=== PATIENT | female | born 1965 | race Caucasian/White ===

== ENCOUNTER → 2018-04-23 | Emergency (ER) | payer OTHER ==
[~2018-04-23] VITALS: Ht 160 cm; Wt 54.4 kg
== END | disposition left against medical advice (07) ==
LOC: ER 11:04
DX: Z53.20 Procedure and treatment not carried out because of patient's decision for unspecified reasons (principal)

== ENCOUNTER 2019-11-05 12:07 | Emergency (ER) | payer OTHER ==
[~2019-11-05] VITALS: Ht 162.6 cm; Wt 53.1 kg
== END 2019-11-05 17:26 | disposition home or self-care (01) ==
LOC: ER 12:07
DX: B34.9 Viral infection, unspecified (principal); R50.9 Fever, unspecified; Z03.818 Encounter for observation for suspected exposure to other biological agents ruled out

== ENCOUNTER 2021-11-17 14:47 | Outpatient (CLI) | payer OTHER | END 2021-11-17 14:56 | disposition home or self-care (01) | LOC: RAD 14:47 | PROVIDERS: ATTEND Physical Medicine & Rehabilitation | DX: M54.2 Cervicalgia (principal) ==

== ENCOUNTER 2024-04-10 11:56 | Emergency (ER) | payer OTHER ==
[~2024-04-10] VITALS: Ht 162.6 cm; Wt 49.9 kg
[2024-04-10] MEDS ORDERED: FAMOTIDINE/PF 20 MG/2 ML VIAL IV ONE (16:00)
[2024-04-10] MEDS ORDERED: FAMOTIDINE/PF 20 MG/2 ML VIAL ONE (16:10)
[2024-04-10 16:28] LABS: HEMATOCRIT 44.8 % (36.0-45.00); HEMOGLOBIN 15.1 g/dL (12.0-15.00); MEAN CELL VOLUME 95.2 fL (80.00-100.00); MEAN CORPUSCULAR HEMOGLOBIN 32.1 pg (27.00-32.0); MEAN CORPUSCULAR HGB CONC 33.7 g/dl (32.0-36.0); PLATELET COUNT 258 K/uL (150-450); RED CELL DISTRIBUTION WIDTH 13.5 % (11.5-14.5)
[2024-04-10 16:42] LABS: PH,URINE 5.5 (5.0-8.0); URINE APPEARANCE Clear; URINE BILIRRUBIN Negative (NEGATIVE); URINE BLOOD Moderate; URINE COLOR Yellow; URINE GLUCOSE Negative (NEGATIVE); URINE KETONE 15 (NEGATIVE); URINE LEUKOCYTE Negative; URINE NITRATE Negative; URINE PROTEIN Negative (NEGATIVE); URINE UROBILINOGEN 0.2 E.U./dl
[2024-04-10 16:46] LABS: URINE BACTERIA 130.9 uL (0.0-1933); URINE EPITHELIAL CELLS 3.6 uL (0.0-38.8); URINE RBC 35.9 uL (0.0-20.8); URINE WBC 2.9 uL (0.0-23.2)
[2024-04-10 17:15] LABS: ALBUMIN 3.5 gm/dL (3.4-5.0); BILIRUBIN TOTAL 0.97 mg/dL (0.3-1.2); CALCIUM 10.5 mg/dL (8.5-10.1); CREATININE SERUM 0.69 mg/dL (0.55-1.02); GFR 87.08; GLOBULINA 4.2 G/DL (2.4-3.5); POTASSIUM 5.28 mEq/L (3.5-5.1); TOTAL PROTEIN 7.7 gm/dL (6.4-8.2)
== END 2024-04-10 18:23 | disposition left against medical advice (07) ==
LOC: ER 11:59
PROVIDERS: General Practice
DX: R10.9 Unspecified abdominal pain (principal); M48.061 Spinal stenosis, lumbar region without neurogenic claudication
CPT/HCPCS: 36415; 74240; 96365; 99283; J3490

== ENCOUNTER 2024-04-11 17:33 | Emergency (ER) | payer OTHER ==
[~2024-04-11] VITALS: Ht 162.6 cm; Wt 56.7 kg
[2024-04-11 17:55] VITALS: BP 128/80; O2SAT 98
[2024-04-11] MEDS ORDERED: LORazepam 2 MG/ML VIAL IM STA (19:53)
[2024-04-11] MEDS ORDERED: 0.9 % SODIUM CHLORIDE 1,000 ML IV STA (19:53)
[2024-04-11] MEDS ORDERED: MEPERIDINE HCL/PF 25 MG/ML VIAL IM STA (19:54)
[2024-04-11] MEDS ORDERED: LORazepam 2 MG/ML DISP.SYRIN ONE (20:05)
[2024-04-11] MEDS ORDERED: PIPERACILLIN/TAZOBACTAM SODIUM 3.375 GM VIAL IV STA (20:08)
[2024-04-11 20:45] LABS: HEMATOCRIT 41.5 % (36.0-45.00); MEAN CELL VOLUME 94.6 fL (80.00-100.00); MEAN CORPUSCULAR HEMOGLOBIN 31.8 pg (27.00-32.0); MEAN CORPUSCULAR HGB CONC 33.7 g/dl (32.0-36.0); PLATELET COUNT 285 K/uL (150-450); RED BLOOD COUNT 4.38 M/uL (4.00-6.00); RED CELL DISTRIBUTION WIDTH 13.2 % (11.5-14.5)
[2024-04-11 21:04] LABS: PARTIAL THROMBOPLASTIN TIME 27.1 SECONDS (22.0-34.0); PROTHROMBIN TIME 10.9 SECONDS (9.0-11.5)
[2024-04-11] MEDS ORDERED: BARIUM SULFATE 450 ML ORAL.SUSP PO ONE (21:04)
[2024-04-11 21:10] LABS: ALBUMIN 3.9 gm/dL (3.4-5.0); BILIRUBIN TOTAL 1.38 mg/dL (0.3-1.2); CALCIUM 10.5 mg/dL (8.5-10.1); CREATININE SERUM 0.7 mg/dL (0.55-1.02); GFR 85.65; GLOBULINA 3.9 G/DL (2.4-3.5); POTASSIUM 4.31 mEq/L (3.5-5.1); TOTAL PROTEIN 7.8 gm/dL (6.4-8.2)
[2024-04-11] MEDS ORDERED: PIPERACILLIN/TAZOBACTAM SODIUM 3.375 GM VIAL IV ONE (21:16)
[2024-04-12 03:07] LABS: URINE APPEARANCE Clear; URINE BILIRRUBIN Negative (NEGATIVE); URINE BLOOD Moderate; URINE COLOR Yellow; URINE GLUCOSE Negative (NEGATIVE); URINE KETONE Negative (NEGATIVE); URINE LEUKOCYTE Negative; URINE NITRATE Negative; URINE PROTEIN Negative (NEGATIVE); URINE UROBILINOGEN 0.2 E.U./dl
[2024-04-12 03:10] LABS: URINE BACTERIA 397.7 uL (0.0-1933); URINE EPITHELIAL CELLS 4.2 uL (0.0-38.8); URINE RBC 47.8 uL (0.0-20.8); URINE WBC 2.6 uL (0.0-23.2)
[2024-04-12 03:27] LABS: URINE MUCUS NEGATIVE
[2024-04-12] MEDS ORDERED: KETOROLAC TROMETHAMINE 30 MG VIAL IV STA (03:38)
[2024-04-12] MEDS ORDERED: KETOROLAC TROMETHAMINE 30 MG VIAL ONE (03:45)
[2024-04-12] MEDS ORDERED: PIPERACILLIN/TAZOBACTAM SODIUM 3.375 GM VIAL IV ONE ×2 (05:39→16:03)
[2024-04-12] MEDS ORDERED: PIPERACILLIN/TAZOBACTAM SODIUM 3.375 GM in DEXTROSE 5 % IN WATER 100 ML IV SCH (06:00)
[2024-04-12 07:58] LABS: HEMATOCRIT 38.9 % (36.0-45.00); HEMOGLOBIN 13.1 g/dL (12.0-15.00); MEAN CELL VOLUME 94.5 fL (80.00-100.00); MEAN CORPUSCULAR HEMOGLOBIN 31.9 pg (27.00-32.0); MEAN CORPUSCULAR HGB CONC 33.8 g/dl (32.0-36.0); PLATELET COUNT 230 K/uL (150-450); RED BLOOD COUNT 4.11 M/uL (4.00-6.00); RED CELL DISTRIBUTION WIDTH 13.1 % (11.5-14.5)
== END 2024-04-12 18:35 | disposition home or self-care (01) ==
LOC: ER 17:35
PROVIDERS: General Practice
DX: R10.31 Right lower quadrant pain (principal)